=== PATIENT | female | born 1935 | race Caucasian/White ===

== ENCOUNTER 2020-12-12 07:58 | Observation (INO) | payer MEDICARE, OTHER, SELFPAY ==
[2020-12-12] VITALS (23 sets, daily range): BP systolic 121–154; BP diastolic 58–78; PULSE 61–98; RESP 16–27; TEMP 36.2–36.4; O2SAT 97–100; BMI 27.0
--- NOTE | 2020-12-12 | ECHO_ITS ---
Patient Info Name: Cailin Jean Age: 85 years : 1935 Gender: Female Ht: 66 in Wt: 167 lbs BSA: 1.89 m2 HR: 77 bpm BP: 149 / 69 mmHg Technical Quality: Good, Excellent Exam Date: 12/12/2020 3:57 PM Exam Location: [facility] Pulmonary Exam Room: 323 Patient Status: Inpatient Admit Date: 12/12/2020 Staff Ordering Physician: Moni Jesus MD Detective: Winnie Yi RDCS Attending Provider: Moni Jesus MD Referring Physician: Edin SHI; Exam Type: CA echo doppler color flow Study Info Indications - palpitations Complete two-dimensional, color flow and Doppler transthoracic echocardiogram is performed. Summary 1. Complete two-dimensional, color flow and Doppler transthoracic echocardiogram is performed. 2. Normal LV size and wall thickness; normal global LV systolic function, ejection fraction about 55-60%. Grade 1 diastolic dysfunction. Normal mitral valve structure, no significant MR. Mild aortic valve sclerosis, no significant stenosis. Trace TR, RVSP 33 mmHg. Left Ventricle Left ventricular chamber dimension is normal. Left ventricular systolic function is normal, estimated at 55-60%. There is no increased left ventricular wall thickness. The left ventricular diastolic function is grade I diastolic dysfunction. Left Atria Left atrial chamber dimension is normal. Right Atria Right atrial chamber dimension is normal. Aortic Valve There is mild aortic valve sclerosis. There is no aortic valve stenosis. Pulmonic Valve The pulmonic valve is not well visualized. Mitral Valve The mitral valve has normal leaflets. There is no mitral valve regurgitation. Tricuspid Valve The tricuspid valve leaflets are normal. There is trace tricuspid valve regurgitation. Pericardium/Pleural There is trivial pericardial effusion. Left Ventricular Outflow Tract Name Value Normal LVOT 2D LVOT Diameter 2.0 cm LVOT Doppler LVOT Peak Gradient 5 mmHg LVOT Mean Gradient 3 mmHg LVOT VTI 24 cm LVOT VTI/AV VTI Ratio 0.8 LVOT Stroke Volume 74 ml LVOT CO 16.7 l/min LVOT CI 8.8 l/min/m2 Pulmonic Valve Name Value Normal PV Doppler PV Peak Gradient 5 mmHg Mitral Valve Name Value Normal MV Doppler MV Decel [place] 248 cm/s2 MV PHT 76 ms MV Area (PHT) 2.9 cm2 4.0-
--- NOTE | ~2020-12-12 | CT_ITS ---
EXAMINATION: CT brain wo con EXAM DATE: 12/12/2020 09:02 INDICATION: Syncope. TECHNIQUE: Spiral CT of the head was performed without contrast. Axial, coronal and sagittal images were reviewed. The dose-length product (DLP) for this examination was 605.33 mGy-cm. The exposure w as tailored according to patient size, and iterative reconstruction (ASIR) was used as additional dos e reduction technique. There is no prior study for comparison. FINDINGS: There is no acute intraparenchymal hemorrhage. No evidence of intraparenchymal brain mass lesion. No evidence of acute infarction. Mild microangiopathy. There is no mass effect or midline sh ift. The ventricles are normal in size. There are no extra-axial collections. There are no acute c alvarial fractures. Patient has had bilateral ocular lens surgery. Soft tissue is unremarkable. The visualized sinuses and mastoid air cells are well aerated. IMPRESSION: Mild microangiopathy. No acute intracranial findings. Reviewed, dictated and finalized at location A.
--- NOTE | ~2020-12-12 | US_ITS ---
EXAMINATION: US carotid duplex BI EXAM DATE: 12/12/2020 14:29 INDICATION: Syncope. TECHNIQUE: Grayscale, color and pulsed Doppler images of the cervical carotid arteries were obtained . The degree of vessel stenosis is placed in one of the following categories: normal, <50% stenosis, 50-69% stenosis, >=70% stenosis but less than near-occlusion, near-occlusion, or occlusion. Note that percent stenosis relative to normal distal artery lumen diameter is indirectly measured from velocit y measurements as described by Jorge, et al. Radiology 2003; 229:340-346. There is no prior study fo r comparison. FINDINGS: RIGHT SIDE: Right common carotid artery peak systolic velocity (PSV in cm/s): 96 Right bulb/internal carotid artery peak systolic velocity (PSV in cm/s): 70 Right internal carotid artery end diastolic velocity (EDV in cm/s): 17 Right ICA/CCA peak systolic ratio: 0.7 Right external carotid artery peak systolic velocity (PSV in cm/s): 72 Right vertebral artery antegrade flow: yes There is no focal plaque identified. LEFT SIDE: Left common carotid artery peak systolic velocity (PSV in cm/s): 99 Left bulb/internal carotid artery peak systolic velocity (PSV in cm/s): 91 Left internal carotid artery end diastolic velocity (EDV in cm/s): 25 Left ICA/CCA peak systolic ratio: 0.9 Left external carotid artery peak systolic velocity (PSV in cm/s): 73 Left vertebral artery antegrade flow: yes There is no focal plaque identified. IMPRESSION: 1. Normal right internal carotid artery. 2. Normal left internal carotid artery. Reviewed, dictated and finalized at location A.
--- NOTE | ~2020-12-12 | CT_ITS ---
EXAMINATION: CTA chest PE protocol EXAM DATE: 12/12/2020 09:59 INDICATION: Syncope, elevated d-dimer. Right-sided rib, chest pain. TECHNIQUE: Spiral CTA of the chest (pulmonary arteries) was performed with 100 cc Omnipaque 350 intr avenous contrast injection. Images were acquired during the pulmonary arterial phase. Coronal maxi mum intensity projection 3D-reconstructions were created by the technologist on dedicated workstation . Axial, coronal and sagittal reformatted images were reviewed. The dose-length product (DLP) for t his examination was 167.67 mGy-cm. The exposure was tailored according to patient size (auto mA exp osure control), and iterative reconstruction (ASIR) was used as additional dose reduction technique. There is no prior study for comparison. FINDINGS: The main, central pulmonary arteries are dilated which can indicate elevated pulmonary dara rial pressure, pulmonary arterial hypertension. Pulmonary arteries are well opacified and without in traluminal filling defects. The lungs are hyperinflated which can be seen with chronic obstructive p ulmonary disease (a clinical diagnosis of functional impairment), but is not diagnostic of it. There is mild bronchiectasis and mild emphysema. No thoracic aortic dissection. There is 4 mm left lower lobe ground glass density nodule on image 92. Right upper lobe calcified gra nuloma. Biapical scarring. There are no pleural or pericardial effusions. Tracheobronchial tree is patent. There is no mediastinal, hilar or axillary lymphadenopathy. There is no pneumothorax. H eart normal in size. There is mild coronary arterial calcification, arterial sclerosis. There is sm all sliding gastroesophageal hiatal hernia. There is thoracic spondylosis without osteoblastic or os teolytic lesions identified. There are no acute fractures identified. IMPRESSION: 1. No pulmonary emboli or acute cardiopulmonary findings. 2. Incidental small left lower lobe nodule likely postinfectious. Optional one-year follow-up chest CT. 3. Scattered regions of post infectious residua. 4. Hyperinflation, emphysema, bronchiectasis. 5. Dilated pulmonary arteries. 6. Small hiatal hernia. Reviewed, dictated and finalized at location A. IMPRESSION: 1. No pulmonary emboli or acute cardiopulmonary findings. 2. Incidental small left lower lobe nodule likely postinfectious. Optional one -year follow-up chest CT. 3. Scattered regions of post infectious residua. 4. Hyperinflation, emphysema, bronchiectasis. 5. Dilated pulmonary arteries. 6. Small hiatal hernia.
--- NOTE | ~2020-12-12 | XR_ITS ---
EXAMINATION: [id number] INDICATION: Right rib pain TECHNIQUE: A frontal view of the chest and four views of the right ribs were obtained. COMPARISON: None. FINDINGS: The lungs are free of acute opacities. There is no pleural effusion or pneumothorax. The ca rdiomediastinal silhouette is normal. The bones are osteopenic which limits the sensitivity for rib f racture however none is seen. IMPRESSION: 1. No acute cardiopulmonary abnormality or evidence of displaced rib fracture. Reviewed, dictated and finalized at location B.
--- NOTE | 2020-12-12 08:04 | ECG_ITS ---
Measurements Intervals [place] Rate: 67 P: 63 CO: 151 QRS: -2 QRSD: 109 T: 60 QT: 421 QTc: 446 Interpretive Statements SINUS RHYTHM POSSIBLE LEFT ATRIAL ENLARGEMENT INCOMPLETE RIGHT BUNDLE BRANCH BLOCK BORDERLINE ST ABNORMALITY- ANTEROLAT/INF LEADS BASELINE ARTIFACT- I, II, V6 BORDERLINE ECG Electronically Signed On 12-12-2020 8:36:08 CDT by David Schumacher D.O.
[2020-12-12 08:28] LABS: Basophils Absolute Auto 0.1 K/mm3 (0.0-0.1); Basophils Percent Auto 0.7 % (0.2-1.2); Eosinophils Absolute Auto 0.2 K/mm3 (0-0.3); Hematocrit 40.1 % (37.0-47.0); Hemoglobin 13.5 g/dL (12.0-15.0); Immature Granulocyte Absolute 0.02 K/mm3 (0.00-0.031); Immature Granulocyte Percent A 0.3 % (0-0.5); Lymphocytes Absolute Auto 1.72 K/mm3 (0.9-3.2); Lymphocytes Percent Auto 24.5 % (18.3-44.2); Mean Corpuscular HGB Conc 33.7 g/dl (32-36); Mean Corpuscular Hemoglobin 30.7 pg (26-34); Mean Corpuscular Volume 91.1 fl (80-100); Mean Platelet Volume 10.8 fl (7.4-10.4); Monocytes Absolute Auto 0.5 K/mm3 (0.1-0.6); Monocytes Percent Auto 7.5 % (2.6-8.5); Neutrophils Absolute Auto 4.5 K/mm3 (1.3-6.7); Platelet Count Result 192 k/mm3 (150-375); Red Cell Distribution Width 13.7 % (11.5-14.5)
--- NOTE | 2020-12-12 08:28 | ED.SYNCOPE ---
HPI - Syncope General Chief Complaint: Syncope Stated Complaint: dizzy Time Seen by Provider: 12/12/20 08:27 Source: patient Mode of arrival: EMS Limitations: no limitations History of Present Illness HPI narrative: Patient is an 85-year-old female complaining of a syncopal episode at home that lasted for approximately a few seconds . Patient states that she felt dizzy prior to the syncopal episode so she sat down and when she tried to get up she fell on the carpet and passed out for a few seconds. Patient denies any headache, speech or visual disturbance, focal weakness or numbness, chest pain, shortness of breath, abdominal pain, nausea, vomiting, diarrhea, fever or chills. Patient states that this is her third syncopal episode in the past month since she has had the Covid vaccine. Related Data Home Medications Medication Instructions Recorded Confirmed nifedipine PO 12/12/20 pravastatin 20 mg PO DAILY 12/12/20 12/12/20 raloxifene 60 mg PO DAILY 12/12/20 12/12/20 theophylline mg PO 12/12/20 Allergies Allergy/AdvReac Type Severity Reaction Status Date / Time Penicillins Allergy Unknown Verified 12/12/20 08:31 Review of Systems Review of Systems: All systems reviewed & are unremarkable except as noted in HPI and below Constitutional: Constitutional: Denies body ache(s), Denies chills, Denies excessive sweating, Denies fatigue, Denies fever(s), Denies headache(s), Denies lethargy, Denies malaise, Denies weakness and Denies weight loss Eyes: Eyes: Denies blurry vision, Denies change in vision and Denies loss of vision ENT: Denies ear discharge, Denies headache(s), Denies lip swelling, Denies epistaxis, Denies nasal congestion, Denies neck pain, Denies throat swelling and Denies tongue swelling Cardiovascular: Cardiovascular: Denies chest pain, Denies chest pain at rest, Denies chest pain with activity, Denies diaphoresis, Denies rapid heart rate, Denies edema, Denies irregular heart rhythm, Denies lightheadedness, Denies palpitations, Denies dyspnea and Denies dyspnea on exertion Respiratory: Respiratory: Denies chest congestion, Denies cough, Denies hemoptysis, Denies dyspnea and Denies dyspnea on exertion Gastrointestinal: Gastrointestinal: Denies abdominal pain, Denies melena, Denies hematochezia, Denies diarrhea, Denies nausea, Denies vomiting and Denies hematemesis Musculoskeletal: Musculoskeletal: Denies abnormal gait, Denies deformity, Denies joint swelling, Denies limited range of motion, Denies neck pain and Denies numbness Neurologic: Denies Abnormal speech present, Denies abnormal gait, Denies confusion, Denies headache(s), Denies focal weakness, Denies loss of vision, Denies numbness, Denies Other visual disturbances, Denies Sensory deficit (Neuro) and Denies weakness Psychiatric: Psychiatric: Denies confusion, Denies depression, Denies auditory hallucinations, Denies homicidal ideation and Denies suicidal ideation Endocrine: Endocrine: Denies cold intolerance, Denies excessive sweating, Denies fatigue, Denies heat intolerance and Denies palpitations Hematologic/Lymphatic: Hematologic/Lymphatic: Denies easy bleeding and Denies easy bruising Allergic/Immunologic: Allergic/Immunologic: Denies lip swelling, Denies throat swelling and Denies tongue swelling PMFSH Social History Social History Gender identity (if verbalized by the patient): Female Comments Past medical history: Hypertension Family history: Noncontributory Social history: Non-smoker, no EtOH use, lives at home Exam Const: General: cooperative, healthy appearing, comfortable, no acute distress, well developed, alert and awake; No confusion Orientation/consciousness: oriented to person, oriented to place, oriented to time, patient oriented x3 and No confusion Limitations: no limitations HENMT: Head: normal to inspection, normocephalic and atraumatic Ears: hearing grossly normal bilaterally, TM normal on the right and TM normal on the le
[2020-12-12] MEDS: LACTATED RINGERS 1,000 ML 250 ML IV CONT (08:41)
[2020-12-12 08:44] LABS: Alanine Aminotransferase 11 U/L (4-35); Albumin Level 4.1 g/dL (3.5-5.1); Alkaline Phosphatase 67 U/L (38-126); Anion Gap 9 mmol/L (8-16); Aspartate Amino Transferase 27 U/L (14-36); Bilirubin,Total 0.7 mg/dL (0.2-1.3); Blood Urea Nitrogen 18 mg/dL (7-17); Carbon Dioxide 23 mmol/L (22-30); Chloride 109 mmol/L (98-107); Estimated CRCL calculation 31 ml/min; Estimated Glomerular Filt Rate 47; Glucose 105 mg/dL (65-105); Potassium 3.3 mmol/L (3.4-5.0); Sodium 141 mmol/L (137-145)
--- NOTE | 2020-12-12 08:47 | PC.NURSE ---
Pt to radiology via stretcher.
[2020-12-12 09:06] LABS: Add Urine Microscopic? YES; Appearance Urine Clear (Clear); Bilirubin Urine Negative (Negative); Blood Urine 1+ (Negative); Color Urine Straw (Yellow); Glucose Urine UA Negative (Negative); Ketones Urine Negative (Negative); Leukocyte Esterase Ur Negative LEU/UL (Negative); Nitrate Urine Negative (Negative); Protein Urine Negative (Negative); RBC Urine 0-2 /hpf (0-2); Squamous Epithelial Cell Urine Rare /hpf (Few); Urobilinogen Urine Negative mg/dL (<2.0); WBC Urine 0-3 /hpf
[2020-12-12 09:07] LABS: Specific Grav Ur 1.003 (1.001-1.035)
--- NOTE | 2020-12-12 10:03 | PC.NURSE ---
Pt returns from PE study.
[2020-12-12] MEDS: MECLIZINE HCL 25 MG TABLET PO (10:40)
[2020-12-12] MEDS: POTASSIUM CHLORIDE 20 MEQ TABLET PO (11:10)
--- NOTE | 2020-12-12 11:29 | PC.NURSE ---
Preparing to admit. Awaiting admission orders.
--- NOTE | 2020-12-12 12:02 | PC.NURSE ---
admission orders received, awaiting bed assignment.
--- NOTE | 2020-12-12 12:51 | PM.IMHP ---
H&P: HPI History of Present Illness Date/Time: 12/12/20 12:51 This is an 85-year-old female with past medical history significant for hypertension, dyslipidemia, asthma. Patient was brought to the emergency room today via EMS after she got up in the morning and was walking down the hallway in her home when she felt dizzy and collapse, she had brief loss of consciousness. Patient states that she has had 3 similar event but the prior to events she only had near syncope felt dizzy but did not lose consciousness. States that every episode started with palpitations and then dizziness, other than that she has been in her usual state of health. Upset for these episodes patient states that she has been in her usual state of health she denies any chills, fevers or rigors ,cough, sputum production, leg swelling, chest pain, PND ,orthopnea ,no nausea/ vomiting/ abdominal pain or diarrhea no changes in her vision no focal sensorimotor deficit. Patient was evaluated for orthostatics in the emergency room and she was found not to be orthostatic. A CT PE protocol also was found not to have PE Preliminary workup is essentially nonrevealing. Patient is going to be placed on observation for further monitoring and workup. Chief Complaint: Syncope Review of Systems Review of Systems: Narrative: Patient collapsed and had brief loss of consciousness at home. Constitutional: Comments: No fevers no rigors or chills Eyes: Comments: No changes in her vision ENT: Comments: No nasal congestion no earache no sore throat Cardiovascular: Comments: Palpitations and dizziness Respiratory: Comments: No shortness of breath no cough no sputum pressure Gastrointestinal: Comments: No nausea no vomiting no diarrhea no abdominal pain Genitourinary: Comments: No pain or burning with urination Musculoskeletal: Comments: No joint pain or muscle pain Integumentary/Breasts: Comments: No rashes Neurologic: Comments: No sensorimotor deficit Endocrine: Comments: No polydipsia/ polyphagia or polyuria PMFSH Social History Social History Gender identity (if verbalized by the patient): Female Meds Home Medications and Allergies Home Medications Medication Instructions Recorded Confirmed Type nifedipine PO 12/12/20 History pravastatin 20 mg PO DAILY 12/12/20 12/12/20 History raloxifene 60 mg PO DAILY 12/12/20 12/12/20 History theophylline mg PO 12/12/20 History Allergies Allergy/AdvReac Type Severity Reaction Status Date / Time Penicillins Allergy Unknown Verified 12/12/20 08:31 Vital Signs Vital Signs - 24 hr 12/12/20 08:06 12/12/20 08:07 12/12/20 08:23 Pulse Rate 84 80 76 Respiratory Rate 18 17 Blood Pressure 140/73 Pulse Oximetry 99 99 12/12/20 08:37 12/12/20 08:46 12/12/20 09:42 Pulse Rate 76 80 93 Respiratory Rate 20 16 27 H Blood Pressure 133/78 127/68 Pulse Oximetry 99 100 98 12/12/20 09:44 12/12/20 09:45 12/12/20 09:47 Pulse Rate 76 92 77 Respiratory Rate 20 Blood Pressure 128/74 127/68 147/68 H Pulse Oximetry 100 12/12/20 10:12 12/12/20 10:16 12/12/20 10:31 Pulse Rate 72 69 66 Respiratory Rate 20 23 H 22 H Blood Pressure 133/68 121/77 136/67 Pulse Oximetry 100 100 100 12/12/20 10:46 12/12/20 11:16 12/12/20 11:56 Pulse Rate 63 64 98 Respiratory Rate 20 25 H 19 Blood Pressure 139/72 135/74 Pulse Oximetry 100 100 97 12/12/20 12:17 12/12/20 12:30 12/12/20 12:31 Pulse Rate 79 61 62 Respiratory Rate Blood Pressure 154/66 H 149/69 H Pulse Oximetry 12/12/20 12:46 Pulse Rate 77 Respiratory Rate Blood Pressure Pulse Oximetry Exam Narrative: Exam Narrative: Sitting in [facility] Const: General: comfortable, no acute distress, well developed, alert and awake Nutritional Appearance: average body habitus Orientation/consciousness: patient oriented x3 HENMT: Head: normal to inspection, normocephalic and atraumatic Ears: hearing grossly normal bilaterally Face and sinus:
--- NOTE | 2020-12-12 13:16 | ADMGEN ---
This patient, Cailin Jean, was admitted to [facility] Surg Room 323-02. Patient/family oriented to hospital policies and general routines including ID bracelet, bed and alarms, visiting hours, pain management, procedures, bathroom and other care routines, personal items, smoking policy, room service/diet, and visiting hours. Information on how to activate the Rapid Response Team has been discussed. Patient/Family are encouraged to report perceived risks to care and to ask questions if they do not understand what they are told or what they should do.
[2020-12-12] MEDS: LACTATED RINGERS 1,000 ML 90 ML IV CONT (13:33)
[2020-12-13] VITALS (8 sets, daily range): BP systolic 105–129; BP diastolic 57–70; PULSE 68–88; RESP 16–18; TEMP 36.3–36.9; O2SAT 98–100
[2020-12-13] MEDS: LACTATED RINGERS 1,000 ML 90 ML IV CONT (00:50)
[2020-12-13] MEDS: NIFEdipine 30 MG TAB.ER.24 60 MG PO (09:00)
--- NOTE | 2020-12-13 12:15 | PM.CNCAR ---
Assessment and Plan Assessment and plan (1) Syncope and collapse: Code(s): R55 - Syncope and collapse Status: Acute Assessment and Plan: Most likely etiology is low blood pressure/vasovagal, or arrhythmogenic. Nothing has shown up on her workup here in the hospital except for occasional PVCs. Not orthostatic in the emergency room and vital signs were stable when EMS arrived after the event. May have some type of tachyarrhythmia since these episodes were associated with fast heartbeats. Although there are no conduction abnormalities on her EKG, Bart arrhythmias are also a common etiology of syncope in older people. Recommendations: Ambulate Discharge today or tomorrow Thirty day monitor which can be obtained through our office after discharge Office follow-up Discussed w/ Dr. Jesus (2) Palpitations: Code(s): R00.2 - Palpitations Status: Acute Assessment and Plan: Sensation of tachycardia associated with the episodes. May have a tachyarrhythmia, or perhaps a sinus pause after conversion from a tachyarrhythmia. Recommend outpatient event monitor. History of Present Illness History of Present Illness Consult date/time: 12/13/20 12:15 Consult reason: Other (syncope) Reason For Visit: Syncope Narrative: Cailin Jean is an 85 y.o. 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 The patient was in her normal state of health yesterday morning, getting ready for a doctor appointment, when she felt a little dizzy and had to sit down. The feeling seemed to dissipate and she went to walk down the reyes, feeling dizzy again then suddenly found herself on the floor with an apparent syncopal episode, injuring her right ribs. She does not remember falling. She pulled herself up on a couch and felt her heart racing. She called her roommate/friend Xochitl, who called EMS. Review of EMS run report shows that on their arrival BP was 134/70, heart rate 88, O2 sat 100%. The patient had a previous episode of dizziness 2-3 days prior to admission. She had been working in the yard in the morning then she came in and prepared breakfast. While sitting there about 30 minutes after doing the yd work she started feeling dizzy and went to lay down. She then felt her heartbeat was racing, steady and hard, and could not palpate her radial or carotid pulse. This went away after about 20-25 minutes and there was no associated shortness of breath or chest pain. Apparently not orthostatic in the ER. No relationship to for nifedipine, which she takes in the evening. Have been eating and drinking normally. No history of heart disease. Rides her bike 10 miles a week with no exertional problems. Overall has been quite healthy; sees Dr. Lopes as her primary care doctor. Review of Systems Constitutional: Constitutional: Denies lethargy Eyes: Eyes: Reports blurry vision (Macular degeneration) ENT: Denies epistaxis Cardiovascular: Cardiovascular: Denies chest pain, Reports leg edema (Occasional), Reports lightheadedness and Reports palpitations Respiratory: Respiratory: Reports no additional respiratory complaints, Denies dyspnea, Denies dyspnea on exertion and Reports wheezing (Takes theophylline for exercise-induced asthma) Gastrointestinal: Gastrointestinal: Denies abdominal pain, Denies hematochezia and Denies hematemesis Genitourinary: Genitourinary: Denies hematuria Musculoskeletal: Musculoskeletal: Reports myalgias (Right ribs hurt since her fall) Integumentary/Breasts: Skin/Breast: Denies rash Neurologic: Denies Abnormal speech present and Denies confusion Psychiatric: Psychiatric: Denies anxiety and D
--- NOTE | 2020-12-13 16:16 | PM.DS ---
DS: Admitting Diagnosis Admitting Diagnosis Admitting Diagnosis: (1) Dizziness: (2) Palpitations: (3) Syncope and collapse: DS: Discharge Diagnosis Discharge Diagnosis (1) Syncope and collapse: Code(s): R55 - Syncope and collapse Status: Acute Assessment and Plan: Patient has been asymptomatic since admission Will be discharged Will follow-up with cardiology in the outpatient setting for Holter monitoring (2) Palpitations: Code(s): R00.2 - Palpitations Status: Acute Assessment and Plan: No new episodes No events recorded on telemetry (3) Dizziness: Code(s): R42 - Dizziness and giddiness Status: Acute Assessment and Plan: Resolved DS: Summary Hospital Course Reason for hospitalization: Syncope Hospital Course: 85-year-old female with past medical history significant for hypertension on Procardia dyslipidemia degenerative joint disease asthma patient presented to emergency room via EMS due to syncope and collapse at home. Patient was not orthostatic however she received fluids overnight, prior to going home patient was walked around the nurse station and did well. Preliminary workup was pretty much unrevealing. No significant findings She was placed on a telemetry monitored bed, no events were recorded. A consult was obtained with Cardiology Patient will follow-up in outpatient setting with Holter monitoring Procedures no procedures Time Spent with Patient Time attestation: Total time spent providing and/or coordinating discharge services: Exam Narrative: Exam Narrative: Sitting in no acute distress Const: General: comfortable, no acute distress, well developed, alert and awake Nutritional Appearance: average body habitus Orientation/consciousness: patient oriented x3 HENMT: Head: normal to inspection, normocephalic and atraumatic Ears: hearing grossly normal bilaterally Face and sinus: normal facial exam Eyes: General: appearance normal, both eyes and all related structures Pupils: Equal, round and reactive pupils present EOM: EOMs intact bilaterally Neck: Neck: full ROM, no lymphadenopathy and no JVD Thyroid: thyroid normal Lymphatic: no lymphadenopathy noted Resp: Effort & Inspection: normal respiratory effort and able to speak in complete sentences Auscultation: clear to auscultation bilaterally Cardio: Jugular venous distension: no JVD Rate: regular rate Rhythm: regular rhythm Heart sounds: S1 normal heart sound present and S2 normal heart sound present GI: GI Palp: Yes Soft to palpation and Yes No hepatosplenomegaly present : General: Yes deferred Skin: Rashes: no rashes Wounds: no wounds Neuro: General: patient oriented x3 and CN's II-XI intact bilaterally Cranial nerves: Yes CN's II-XII intact bilaterally and Yes Equal, round and reactive pupils present Cognition (Neuro): normal cognition Speech: normal speech Gait exam (Neuro): Normal gait present Motor exam (neuro): 5/5 motor strength present throughout Extrem: General: normal to inspection, full ROM, no joint enlargement and no pedal edema DS: Data Data Completed and Pending Completed studies during hospitalization: Exam Type: CA echo doppler color flow Study Info Indications - palpitations Complete two-dimensional, color flow and Doppler transthoracic echocardiogram is performed. Summary 1. Complete two-dimensional, color flow and Doppler transthoracic echocardiogram is performed. 2. Normal LV size and wall thickness; normal global LV systolic function, ejection fraction about 55-60%. Grade 1 diastolic dysfunction. Normal mitral valve structure, no significant MR. Mild aortic valve sclerosis, no significant stenosis. Trace TR, RVSP 33 mmHg. Left Ventricle Left ventricular chamber dimension is normal. Left ventricular systolic function is normal, estimated at 55-60%. There is
== END 2020-12-13 16:38 | disposition home or self-care (01) ==
LOC: ANHED 11:13 → ANH3MEDSUR 12:09
PROVIDERS: Admitting Provider Internal Medicine; Emergency Provider Emergency Medicine; PCP Internal Medicine; Visit Provider Internal Medicine
DX: R55 Syncope and collapse (principal); R42 Dizziness and giddiness; R00.2 Palpitations; I10 Essential (primary) hypertension; E78.5 Hyperlipidemia, unspecified; Z96.651 Presence of right artificial knee joint
CPT/HCPCS: 36415; 51701; 70450; 71101; 71275; 80053; 81001; 85025; 85380; 93005; 93306; 93880; 96360; 96361; 99285; A9270; G0378; J7120; Q9967

== ENCOUNTER 2023-08-15 14:36 | Outpatient (CLI) | payer MEDICARE, OTHER, SELFPAY ==
[2023-08-15 15:00] LABS: Basophils Absolute Auto 0.1 K/mm3 (0.0-0.1); Basophils Percent Auto 0.8 % (0.2-1.2); Eosinophils Absolute Auto 0.1 K/mm3 (0-0.3); Eosinophils Percent Auto 1.2 % (0-4.4); Hematocrit 39.6 % (37.0-47.0); Hemoglobin 12.9 g/dL (12.0-15.0); Immature Granulocyte Absolute 0.02 K/mm3 (0.00-0.031); Immature Granulocyte Percent A 0.3 % (0-0.5); Lymphocytes Absolute Auto 1.59 K/mm3 (0.9-3.2); Lymphocytes Percent Auto 20.8 % (18.3-44.2); Mean Corpuscular HGB Conc 32.6 g/dl (32-36); Mean Corpuscular Hemoglobin 30.7 pg (26-34); Mean Corpuscular Volume 94.3 fl (80-100); Mean Platelet Volume 11.2 fl (7.4-10.4); Monocytes Absolute Auto 0.6 K/mm3 (0.1-0.6); Monocytes Percent Auto 8.1 % (2.6-8.5); Neutrophils Absolute Auto 5.3 K/mm3 (1.3-6.7); Neutrophils Percent Auto 68.8 % (45.5-73.1); Platelet Count Result 186 k/mm3 (150-375); Red Cell Distribution Width 13.9 % (11.5-14.5); White Blood Count 7.7 K/mm3 (4.5-10.0)
[2023-08-15 20:14] LABS: Alanine Aminotransferase 15 U/L (6-35); Albumin Level 4.4 g/dL (3.5-5.1); Alkaline Phosphatase 72 U/L (38-126); Anion Gap 8 mmol/L (8-16); Aspartate Amino Transferase 31 U/L (14-36); Blood Urea Nitrogen 27 mg/dL (7-17); Carbon Dioxide 26 mmol/L (22-30); Chloride 105 mmol/L (98-107); Estimated Glomerular Filt Rate 52; Glucose 96 mg/dL (65-110); Lactate Dehydrogenase 210 U/L (120-246); Potassium 3.6 mmol/L (3.4-5.0); Sodium 139 mmol/L (137-145)
[2023-08-15 22:37] LABS: Bilirubin,Total 0.6 mg/dL (0.2-1.3)
== END 2023-08-15 14:37 | disposition home or self-care (01) ==
PROVIDERS: PCP Internal Medicine; Visit Provider Internal Medicine Hematology & Oncology
DX: R59.1 Generalized enlarged lymph nodes (principal)
CPT/HCPCS: 36415; 80053; 83615; 85025; 88184; 88185

== ENCOUNTER 2023-09-05 09:12 | Outpatient (CLI) | payer MEDICARE, OTHER, SELFPAY ==
--- NOTE | ~2023-09-05 | CT_ITS ---
Clinical Indication: Lymphadenopathy CT Scan of the Chest, Abdomen, and Pelvis with Contrast: Technique: Contiguous sections were acquired throughout the chest, abdomen, and pelvis after intraven ous administration of 100 cc of Omnipaque 350. Dose reduction technique was used on this scan by ashley felix automated exposure control and iterative reconstruction technique. The dose-length product (DL P) was 383.66 mGy-cm. COMPARISON: 12/12/2020 Findings: There is no evidence of any significant mediastinal, hilar or axillary lymphadenopathy. The mediastin al soft tissues appear normal. There is no evidence of pleural or pericardial effusion. There is biapical pulmonary scarring. Several calcified granulomas are present. There is a groundglas s nodule in the left lower lobe measuring 6 mm (axial image 92), unchanged. There is an additional gr oundglass lesion in the more superior left lower lobe, which is increased in size from prior exam, no w measuring 2.0 x 0.6 cm in extent (axial image 62). There is an apparent enhancing pleural-based les ion at the right lower lobe region, measuring 2 cm in length, and 0.6 cm in thickness (axial image 10 6), not seen on prior exam. The liver, spleen, pancreas, gallbladder, adrenals and kidneys are within normal limits. There are at herosclerotic calcifications of the aorta. No lymphadenopathy. No bowel obstruction or bowel wall thickening. There is no evidence to suggest acute appendicitis. Urinary bladder is unremarkable. Calcified uterine fibroid present. No ascites. Impression: 2.0 x 0.6 cm probable enhancing pleural-based lesion in the right lower lobe region, as detailed abov e, new from prior exam. Neoplastic lesion is a consideration. Consider PET/CT or attempted tissue ana pling as indicated. 2.0 x 0.6 cm groundglass nodule left lower lobe is increased in size from prior exam. Low-grade neopl astic lesion such as bronchoalveolar cell carcinoma is a consideration. Additional stable 6 mm groundglass left lower lobe pulmonary nodule. Reviewed, dictated and finalized at location M. OR [employer] DES[employer] Impression: 2.0 x 0.6 cm probable enhancing pleural-based lesion in the right lower lobe re gion, as detailed above, new from prior exam. Neoplastic lesion is a considerat ion. Consider PET/CT or attempted tissue sampling as indicated. 2.0 x 0.6 cm groundglass nodule left lower lobe is increased in size from prior exam. Low-grade neoplastic lesion such as bronchoalveolar cell carcinoma is a consideration. Additional stable 6 mm groundglass left lower lobe pulmonary nodule.
== END 2023-09-05 09:13 | disposition home or self-care (01) ==
PROVIDERS: PCP Internal Medicine; Visit Provider Internal Medicine Hematology & Oncology
DX: R59.1 Generalized enlarged lymph nodes (principal); R91.8 Other nonspecific abnormal finding of lung field
CPT/HCPCS: 71260; 74177; Q9967

== ENCOUNTER 2023-09-17 13:05 | Outpatient (CLI) | payer MEDICARE, OTHER, SELFPAY ==
--- NOTE | ~2023-09-17 | PE_ITS ---
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 8.648 mCi of 18-fluorodeoxyglucose (18-FDG) was administ ered i.v. Low dose computed tomography (CT) images were acquired from the base of the brain to the pr oximal thighs for attenuation correction and anatomic localization. Positron emission tomography (PET ) images were acquired in the same distribution beginning 63 minutes after injection. Images includin g fused PET/CT images were reconstructed in axial, coronal, and sagittal planes. Automated exposure c ontrol technique was employed. The dose-length product was 572.63mGy-cm. COMPARISON: CT chest, abdomen and pelvis dated 09/05/2023 FINDINGS: Head/neck: There is symmetric increased activity in the oral cavity, palatine tonsils, laryngeal muscles and ocu lar muscles without CT correlate, likely physiologic. Additional mild uptake involving the musculatur e about the cephalad cervical spine and skull base without radiologic correlate likely physiologic. T here is prominent uptake localizes along the fat planes in the lower neck and supraclavicular regions without soft tissue density radiologic correlate likely related to brown fat. No pathologically enla rged cervical lymphadenopathy or suspicious foci of increased FDG uptake in the visualized head or ne ck. Chest: Relatively symmetric pattern of multiple foci of increased uptake in the left or right paraspinal sof t tissues and adjacent medial aspect of the intercostal spaces also likely related to brown fat. Ther e is FDG uptake with maximal SUV of 9.0 associated with a 2.1 x 0.8 cm lenticular nodule along the pl eura at the posterior right lower lobe. Additional subcentimeter focus of increased uptake with maxim al SUV of 6.8 in the subcutaneous tissues along the anterior margin of the lateral right ninth rib wi thout evident radiologic correlate. There are few small calcified and noncalcified pulmonary nodules in the right lung without evident associated FDG uptake. No pneumonia, pulmonary edema or pleural eff usion. Heart size is normal. Atherosclerotic coronary artery calcification. No pericardial effusion. Thoracic aorta is normal in caliber. No pathologically enlarged or FDG avid mediastinal or hilar lymp hadenopathy. Increased FDG uptake associated with a couple bilateral breast nodules, the larger measu ring 1.4 x 0.7 cm with maximal SUV of 9.1 at the axillary tail of the right breast and the smaller me asuring 6 normal marrow with maximal SUV of 5.2 at the upper outer quadrant of the left breast approx imately 6 cm from the nipple. Small focus of increased FDG uptake with maximal SUV of 5.0 near the le ft shoulder centered in the fat caudal to the coracoid process which also favors brown fat. Abdomen/pelvis/proximal thighs: There are greater than 25 prominently FDG avid subcutaneous nodules about the abdomen, pelvis and vis ualized thighs which demonstrates higher attenuation on the prior contrast enhanced study consistent with enhancing neoplasm. Per review of the clinical record prior biopsy for the subcutaneous masses w hich raises some suspicion for lymphoma or leukemia. For reference one of the larger masses at the le ft buttock measures 3.1 x 2.4 cm with maximal SUV of 15.3. Physiologic renal accumulation and excreti on of activity in the kidneys, bladder and along portions of ureters. Photopenic defect associated wi th a 4.8 cm left renal cyst. Normal degree and heterogenous pattern of increased uptake throughout th e liver without radiologic correlate or dominant FDG avid lesion. The gallbladder, pancreas, spleen a nd bilateral adrenal glands are normal. Mild uptake scattered throughout the bowels without radiologi c correlate, also likely physiologic. 3.5 cm calcified degenerated uterine fibroid in the left hemipe lvis. No other abnormal foci of increase
[2023-09-17 14:13] LABS: Glucose Point of Care 93 mg/dl (65-105)
== END 2023-09-17 13:06 | disposition home or self-care (01) ==
LOC: ANHIMG 13:08
PROVIDERS: PCP Internal Medicine; Visit Provider Internal Medicine Hematology & Oncology
DX: C34.31 Malignant neoplasm of lower lobe, right bronchus or lung (principal); R19.09 Other intra-abdominal and pelvic swelling, mass and lump; N63.20 Unspecified lump in the left breast, unspecified quadrant; N63.10 Unspecified lump in the right breast, unspecified quadrant
CPT/HCPCS: 78815; A9552

== ENCOUNTER 2023-12-31 11:10 | Outpatient (CLI) | payer MEDICARE, OTHER, SELFPAY ==
[2023-12-31 11:26] LABS: Basophils Absolute Auto 0.1 K/mm3 (0.0-0.1); Basophils Percent Auto 0.9 % (0.2-1.2); Eosinophils Absolute Auto 0.1 K/mm3 (0-0.3); Eosinophils Percent Auto 0.7 % (0-4.4); Hematocrit 37.3 % (37.0-47.0); Hemoglobin 12.4 g/dL (12.0-15.0); Immature Granulocyte Absolute 0.02 K/mm3 (0.00-0.031); Immature Granulocyte Percent A 0.3 % (0-0.5); Lymphocytes Absolute Auto 1.14 K/mm3 (0.9-3.2); Lymphocytes Percent Auto 16.9 % (18.3-44.2); Mean Corpuscular HGB Conc 33.2 g/dl (32-36); Mean Corpuscular Hemoglobin 31.4 pg (26-34); Mean Corpuscular Volume 94.4 fl (80-100); Mean Platelet Volume 10.6 fl (7.4-10.4); Monocytes Absolute Auto 0.7 K/mm3 (0.1-0.6); Neutrophils Absolute Auto 4.8 K/mm3 (1.3-6.7); Neutrophils Percent Auto 71.2 % (45.5-73.1); Platelet Count Result 179 k/mm3 (150-375); Red Blood Count 3.95 M/mm3 (4.2-5.4); Red Cell Distribution Width 14.1 % (11.5-14.5); White Blood Count 6.7 K/mm3 (4.5-10.0)
[2023-12-31 11:31] LABS: Blood Urea Nitrogen 24 mg/dL (8-26); Carbon Dioxide 27 mmol/L (22-30); Chloride 103 mmol/L (98-109); Estimated Glomerular Filt Rate 47; Glucose 100 mg/dL (70-105); Ionized Calcium (POC) 1.16 mmol/L (1.11-1.31); Potassium 3.5 mmol/L (3.5-4.9); Sodium 140 mmol/L (138-146)
[2023-12-31 12:11] LABS: Alanine Aminotransferase 13 U/L (6-35); Albumin Level 4.5 g/dL (3.5-5.1); Alkaline Phosphatase 67 U/L (38-126); Anion Gap 8 mmol/L (4-12); Aspartate Amino Transferase 27 U/L (14-36); Bilirubin,Total 0.7 mg/dL (0.2-1.3); Blood Urea Nitrogen 25 mg/dL (7-17); Calcium 9.4 mg/dL (8.4-10.2); Carbon Dioxide 25 mmol/L (22-30); Chloride 105 mmol/L (98-107); Estimated Glomerular Filt Rate 52; Glucose 98 mg/dL (65-110); Lactate Dehydrogenase 202 U/L (120-246); Potassium 3.5 mmol/L (3.4-5.0); Sodium 138 mmol/L (137-145)
== END 2023-12-31 11:11 | disposition home or self-care (01) ==
LOC: ANHLAB 11:14
PROVIDERS: PCP Internal Medicine; Visit Provider Internal Medicine Hematology & Oncology
DX: R59.1 Generalized enlarged lymph nodes (principal)
CPT/HCPCS: 36415; 80047; 80053; 83615; 85025

== ENCOUNTER 2024-05-11 08:26 | Outpatient (CLI) | payer MEDICARE, OTHER, SELFPAY ==
[2024-05-11 08:55] LABS: Basophils Absolute Auto 0.1 K/mm3 (0.0-0.1); Eosinophils Absolute Auto 0.1 K/mm3 (0-0.3); Eosinophils Percent Auto 1.8 % (0-4.4); Hematocrit 40.6 % (37.0-47.0); Hemoglobin 13.2 g/dL (12.0-15.0); Immature Granulocyte Absolute 0.03 K/mm3 (0.00-0.031); Immature Granulocyte Percent A 0.5 % (0-0.5); Lymphocytes Absolute Auto 1.19 K/mm3 (0.9-3.2); Lymphocytes Percent Auto 19.3 % (18.3-44.2); Mean Corpuscular HGB Conc 32.5 g/dl (32-36); Mean Corpuscular Hemoglobin 30.8 pg (26-34); Mean Corpuscular Volume 94.9 fl (80-100); Mean Platelet Volume 10.5 fl (7.4-10.4); Monocytes Absolute Auto 0.6 K/mm3 (0.1-0.6); Monocytes Percent Auto 9.7 % (2.6-8.5); Neutrophils Absolute Auto 4.2 K/mm3 (1.3-6.7); Neutrophils Percent Auto 67.7 % (45.5-73.1); Platelet Count Result 195 k/mm3 (150-375); Red Blood Count 4.28 M/mm3 (4.2-5.4); Red Cell Distribution Width 13.8 % (11.5-14.5); White Blood Count 6.2 K/mm3 (4.5-10.0)
[2024-05-11 10:21] LABS: Alanine Aminotransferase 12 U/L (6-35); Albumin Level 4.3 g/dL (3.5-5.1); Alkaline Phosphatase 75 U/L (38-126); Anion Gap 11 mmol/L (4-12); Aspartate Amino Transferase 30 U/L (14-36); Bilirubin,Total 0.7 mg/dL (0.2-1.3); Blood Urea Nitrogen 21 mg/dL (7-17); Calcium 9.3 mg/dL (8.4-10.2); Carbon Dioxide 26 mmol/L (22-30); Chloride 101 mmol/L (98-107); Estimated Glomerular Filt Rate 59; Glucose 93 mg/dL (65-110); Lactate Dehydrogenase 208 U/L (120-246); Potassium 3.8 mmol/L (3.4-5.0); Sodium 138 mmol/L (137-145)
== END 2024-05-11 08:27 | disposition home or self-care (01) ==
LOC: ANHLAB 08:31
PROVIDERS: PCP Internal Medicine; Visit Provider Internal Medicine Hematology & Oncology
DX: R59.1 Generalized enlarged lymph nodes (principal)
CPT/HCPCS: 36415; 80053; 83615; 85025

== ENCOUNTER 2024-06-02 09:00 | Outpatient (CLI) | payer MEDICARE, OTHER, SELFPAY ==
--- NOTE | 2024-06-02 09:29 | ECG_ITS ---
Test Date: 2024-06-02 09:42:30 Measurements Intervals [place] Rate: 66 P: 72 [place]: 154 QRS: -29 QRSD: 113 T: 56 QT: 433 QTc: 454 Interpretive Statements SINUS RHYTHM WITH OCCASIONAL VENTRICULAR PREMATURE COMPLEXES BORDERLINE LEFT AXIS DEVIATION [QRS AXIS < -20] MODERATE INTRAVENTRICULAR CONDUCTION DELAY [110+ ms QRS DURATION] WARNING: DATA QUALITY MAY AFFECT INTERPRETATION No previous ECG available for comparison Electronically Signed On 06-02-2024 10:03:50 CDT by Danilo Alves M.D.
[2024-06-02 09:53] LABS: Basophils Absolute Auto 0.1 K/mm3 (0.0-0.1); Basophils Percent Auto 0.8 % (0.2-1.2); Eosinophils Absolute Auto 0.1 K/mm3 (0-0.3); Eosinophils Percent Auto 1.6 % (0-4.4); Hematocrit 37.9 % (37.0-47.0); Hemoglobin 12.7 g/dL (12.0-15.0); Immature Granulocyte Absolute 0.02 K/mm3 (0.00-0.031); Immature Granulocyte Percent A 0.3 % (0-0.5); Lymphocytes Percent Auto 19.8 % (18.3-44.2); Mean Corpuscular HGB Conc 33.5 g/dl (32-36); Mean Corpuscular Volume 95.5 fl (80-100); Mean Platelet Volume 10.7 fl (7.4-10.4); Monocytes Absolute Auto 0.7 K/mm3 (0.1-0.6); Monocytes Percent Auto 9.9 % (2.6-8.5); Neutrophils Absolute Auto 4.8 K/mm3 (1.3-6.7); Neutrophils Percent Auto 67.6 % (45.5-73.1); Platelet Count Result 193 k/mm3 (150-375); Red Blood Count 3.97 M/mm3 (4.2-5.4); White Blood Count 7.1 K/mm3 (4.5-10.0)
[2024-06-02 10:11] LABS: Anion Gap 10 mmol/L (4-12); Blood Urea Nitrogen 20 mg/dL (7-17); Calcium 9.2 mg/dL (8.4-10.2); Carbon Dioxide 27 mmol/L (22-30); Chloride 103 mmol/L (98-107); Estimated Glomerular Filt Rate 52; Glucose 94 mg/dL (65-110); Potassium 3.5 mmol/L (3.4-5.0); Sodium 140 mmol/L (137-145)
[2024-06-04 09:38] LABS: Theophylline 12.6 mg/L (10.0-20.0)
== END 2024-06-02 09:01 | disposition home or self-care (01) ==
PROVIDERS: Anesthesiology; PCP Internal Medicine; Visit Provider Surgery
DX: Z01.818 Encounter for other preprocedural examination (principal); I10 Essential (primary) hypertension; R22.42 Localized swelling, mass and lump, left lower limb; Z51.81 Encounter for therapeutic drug level monitoring
CPT/HCPCS: 36415; 80048; 80198; 85025; 93005

== ENCOUNTER 2024-06-03 01:17 | Day surgery (SDC) | payer MEDICARE, OTHER, SELFPAY ==
[2024-06-01 10:22] VITALS: BMI 23.5
--- NOTE | 2024-06-01 10:55 | PC.NURSE ---
Report to the Outpatient Waiting Room, entrance under the green pavilion located off [facility], at time ___11:00AM____ on date ___06/03/24____. Planned Procedure Time: ____1:00PM____.? Time changes happen often and if your time is changed the preop area will call you the afternoon before. - You and your visitor will be asked to self-screen and do not enter if you have any COVID symptoms. Please call surgeon if you need to reschedule. - A mask is optional within the hospital at this time. Patients may have clear liquids (water, carbonated beverages, clear teas, apple juice) until 3 hours prior to surgery with a maximum of 20 ounces. NO FOOD AFTER MIDNIGHT ON NIGHT BEFORE SURGERY. NO SMOKING. Take only the following medications with a SIP of water on the morning of surgery: ____NIFEDIPINE, THEOPHYLLINE DO NOT STOP ANY OF YOUR OTHER PRESCRIPTION MEDICATIONS PRIOR TO SURGERY EXCEPT THE FOLLOWING Medications to discontinue per physician HOLD ALL VITAMINS/SUPPLEMENTS 3 DAYS PRE-OP PER ANESTHESIA- STARTING NOW_ Date to take last dose 05/30/24 Please no make-up, nail uzbek, hairspray, perfume, deodorant, or body powder the day of surgery.? No jewelry (including any body piercings) or valuables the day of surgery, leave them at home.? Please take a shower or bath the night before, or the morning of, surgery with an antibacterial soap.? Wear comfortable, loose fitting clothing.? - Jewelry must be removed prior to entering the operating room.? Rings and piercings that are not removed may be cut off. - The hospital will not accept responsibility for valuables.? - Please leave all valuables, including medications, at home the day of surgery. If you are going home after surgery, a licensed belly dump driver must drive you home.? - NO public transportation without another adult if you receive anesthesia. - We recommend that an adult stay with you for 24 hours following discharge. - We also recommend that you do not drive, make important decision, drink alcoholic beverages, or take any drugs that were not prescribed by your health care provider for at least 24 hours after your discharge time. Follow any additional instructions given to you from your surgeon. Telephone instructions given to ____PATIENT and asked if any additional questions and then verbalized understanding. Patient advised to call surgeon office or pre surgery nurse liaison [phone] if any additional questions.
--- NOTE | 2024-06-03 10:52 | WPDHPUPDATE1 ---
History and Physical Update Update Date/Time: 06/03/24 10:52 History and Physical has been reviewed, including an updated exam of the patient. There are NO changes in the patient's condition. Risks, benefits, and alternatives have been discussed and questions answered. Patient agrees to proceed with procedure.
[2024-06-03] MEDS: LACTATED RINGERS 1,000 ML 30 ML IV CONT (11:30)
[2024-06-03 11:56] VITALS: BP 140/65; PULSE 77; RESP 14; TEMP 36.6; O2SAT 99
--- NOTE | 2024-06-03 12:34 | WPDANESEPPF ---
Anes - Initial Pre Proc Eval Procedure: Operation Date: 06/03/24 13:00 Proposed Procedures p Excision of Subcutaneous Masses Left Hip, Left Lateral Thigh - Chris Rao MD Date/Time: 06/03/24 12:34 Surgeon: Chris Rao MD Pre Op Diagnosis: Subq Mass Lt Hip-6.5cm, Subq Mass Lt Lat Thigh 4cm Patient Data Age: 88 Gender: F Height: 1.68 m Weight: 66.5 kg Last Vital Signs Temp 36.6 C 06/03/24 11:56 Pulse 77 06/03/24 11:56 Resp 14 06/03/24 11:56 BP 140/65 06/03/24 11:56 Pulse Ox 99 06/03/24 11:56 O2 Del Method Room Air 06/03/24 11:56 Allergies Allergy/AdvReac Type Severity Reaction Status Date / Time Penicillins Allergy Unknown Verified 06/03/24 11:51 aspirin AdvReac Itching Verified 06/03/24 11:51 Home Medications Medication Instructions Recorded Confirmed Type nifedipine 60 mg tablet,extended 60 mg PO DAILY 12/12/20 06/03/24 History release 24 hr (Procardia XL) pravastatin 20 mg tablet 20 mg PO HS 06/01/24 06/03/24 History raloxifene 60 mg tablet 60 mg PO DAILY 06/01/24 06/03/24 History theophylline 400 mg 200 mg PO BID 06/01/24 06/03/24 History tablet,extended release 24 hr vit C 250 mg-vit E 90 mg-zinc 40 1 tablet PO BID 06/01/24 06/03/24 History mg-copper 1 [id number] capsule (PreserVision AREDS-2) Patient hx anesthesia problems: none Family hx anesthesia problems: none Results Review: All pre-operative results and documents have been reviewed as part of the pre-operative evaluation. 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 Roommate, Xochitl, was a [employer] at [employer]. Smoking status: Never smoker Alcohol intake: current Substance use: never Living arrangements: alone Gender identity (if verbalized by the patient): Female Sexual Orientation (if Verbalized by the Patient): Straight or Heterosexual Spiritual care concerns: No Anes - Eval Final PreProcedure Day of Procedure 06/03/24 12:34 Patient weight: normal Heart: regular rate and rhythm Lungs: clear to auscultation Airway: Mallampati scale class II Neurological: alert and oriented Last oral intake: >/= 8 hours ASA classification: III Emergent: no Anesthetic plan: proceed Results Review: All pre-operative results and documents have been reviewed as part of the pre-operative evaluation. Informed Consent: The patient's anesthetic plan and its attendant risks and benefits were discussed with the patient/family/POA. Questions were solicited and answers provided to the satisfaction of the patient/family/POA.
[2024-06-03] MEDS: ceFAZolin 2 GM/D5W 50 ML 2 GM/50 ML BAG IVPB (12:47)
--- NOTE | 2024-06-03 12:48 | W.PM.PROC2 ---
Procedure Note - Detailed Date of Procedure 06/03/24 Pre-op Diagnosis Subq Mass Lt Hip-6.5cm, Subq Mass Lt Lat Thigh 4cm Post-op Diagnosis Other (Subcutaneous mass left hip 5 cm, subcutaneous mass left lateral thigh 3 cm) Procedure Performed Excision 5 cm subcutaneous mass left hip with no margin, excision 3 cm subcutaneous mass left lateral thigh with no margin Surgeon Chris Rao MD Launderette Attendant Fawn ALANIZ Anesthesia General (LMA) and Local Indications Patient has some painful subcutaneous masses which clinically appeared to be lipomas. The largest is in the left posterior hip and the other that is very symptomatic is in the upper lateral left thigh. These are painful when she turns over in bed or is sitting. She is taken to surgery now for excision. Findings 5 cm subcutaneous mass left hip--beige-brown in color, smooth firm possibly enlarged lymph node 3 cm subcutaneous mass left lateral thigh--same color, firm not quite as smooth the surface, also suggestive of an enlarged lymph node. Description of Procedure Patient was placed in right lateral decubitus position. The left hip and thigh were prepped and draped. The proposed incisions were marked on the skin as well as outlines of the 2 masses in the preoperative holding area. Local anesthetic was infiltrated in the area of the anticipated incisions. Additional local was infiltrated in a field block all around the subcutaneous masses. Starting with the mass on the posterolateral upper hip, incision was made and dissection was carried through the subcutaneous until the mass was encountered. It appeared the color of the lymph node. It was quite firm but smooth. It was carefully dissected free from the surrounding subcutaneous tissues and the underlying muscular tissues.. Once completely freed, it was sent to pathology in formalin. Size was measured as 5 x 3.4 x 2.5 cm. We then turned our attention to the lateral upper left thigh. In similar fashion, incision was made over the mass. Dissection down to the mass was carried out. This also appeared to be an enlarged lymph node. It was carefully dissected free from the surrounding subcutaneous tissue and off the lateral thigh musculature. Once completely resected, it was measured and then sent to pathology in formalin. Its size was 3 x 2.5 x 2 cm. Each of the wounds was then closed with sub cutaneous interrupted sutures of 3-0 Vicryl. The skin was loosely approximated with subcuticular 4-0 Vicryl. Both skin incisions were closed with running 4-0 Monocryl skin suture. Wounds were dressed with Exofin surgical adhesive. Patient was returned to a supine position, awakened and taken to outpatient surgery in good condition. Sponge needle counts were correct x2. Estimated Blood Loss -5 Drains No Packing No Pathology Yes (Two subcutaneous masses as described above) Complications None Condition Stable Disposition PACU [facility] Billing Surgery - Charge Forward: Surgery Billing (Excision 5 cm subcutaneous mass left hip with no margin; excision subcutaneous mass left thigh 3 cm, with no margin)
[2024-06-03] MEDS: BUPIVACAINE/EPINEPHRINE 0.5% 10 ML VIAL 40 ML INFILTRATE (13:16)
--- NOTE | 2024-06-03 13:26 | SUR.OPER ---
specimens: -subcutaneous mass left hip sent fresh to lab with Laurence Snell, PCT @7003. Excision time 5cm x 3.4cm x 2.5cm
--- NOTE | 2024-06-03 13:31 | SUR.OPER ---
amendment to previously saved note: should read excision time 1325 preceding specimen measurements; this specimen was received in lab @1332 by Sheryl
--- NOTE | 2024-06-03 13:41 | SUR.OPER ---
second specimen: subcutaneous mass left thigh excision time 1338; sent fresh to lab @5504 with RAMONA Alejandra; specimen measured 3cm x 2.5cm x 2cm
--- NOTE | 2024-06-03 13:44 | SUR.OPER ---
second specimen received in lab @4125 by Sheryl
[2024-06-03 14:05] VITALS: BP 129/53; PULSE 84; RESP 12; TEMP 36.2; O2SAT 100
[2024-06-03 14:20] VITALS: BP 126/56; PULSE 70; RESP 16; O2SAT 99
[2024-06-03 14:35] VITALS: BP 131/58; PULSE 71; RESP 13; O2SAT 98
[2024-06-03 14:55] VITALS: BP 146/55; PULSE 75
[2024-06-03 15:25] VITALS: BP 124/50; PULSE 75
== END 2024-06-03 15:50 | disposition home or self-care (01) ==
PROVIDERS: PCP Internal Medicine; Visit Provider Surgery
PROC: (CPT 27632; principal; 2024-06-03 13:00)
DX: C85.95 Non-Hodgkin lymphoma, unspecified, lymph nodes of inguinal region and lower limb (principal); I10 Essential (primary) hypertension; E78.00 Pure hypercholesterolemia, unspecified
CPT/HCPCS: 27632 ×2; 88304; 88305; 88333; J0690; J1100; J2003; J2405; J2704; J7120